=== PATIENT | male | born 1995 | race Caucasian/White ===

== ENCOUNTER 2020-08-15 16:05 | Outpatient (REF) | payer OTHER, SELFPAY | END 2020-08-15 16:06 | disposition home or self-care (01) | LOC: HO.LAB 16:05 | PROVIDERS: PCP Internal Medicine; Visit Provider Internal Medicine | DX: Z20.822 Contact with and (suspected) exposure to COVID-19 (principal) | CPT/HCPCS: 36415; C9803; U0003 ==

== ENCOUNTER 2020-12-31 18:22 | Emergency (ER) | payer OTHER, SELFPAY ==
[2020-12-31 19:31] VITALS: BP 135/69; PULSE 81; TEMP 36.5; O2SAT 100; BMI 29.2
[2020-12-31] MEDS: Tetracaine HCl/PF 0.5% Oph Sol 4 ML DROPS 1 DROP EYE-BOTH (21:39)
[2020-12-31] MEDS: Fluorescein Sodium STRIP 1 STRIP EYE-BOTH (21:40)
--- NOTE | 2020-12-31 21:58 | ED_ITS ---
HPI - Eye Problem General Chief complaint: Eye Problems Stated complaint: foreign body in eye Time Seen by Provider: 12/31/20 21:04 Source: patient Mode of arrival: ambulatory Limitations: no limitations History of Present Illness chief complaint: eye pain Onset (ago): day(s) (1) Onset description: sudden Duration: constant Location: left eye Eye Symptoms: pain and foreign body sensation Place: work Mechanism: direct trauma (Saw dust on) Severity: moderate Severity scale (1-10): 6 If Pain, Quality: sharp Associated symptoms: none Treatments Prior to Arrival: none Related Data Previous Rx's Medication Instructions Recorded levothyroxine 25 mcg tablet 25 mcg PO QAM #30 tab 05/16/20 sulfacetamide sodium [Bleph-10] 1 drp OPHTHALMIC (EYE) Q4H 7 Days 12/31/20 #5 ml Allergies Allergy/AdvReac Type Severity Reaction Status Date / Time amoxicillin [AMOXICILLIN] Allergy Mild RASH Verified 07/30/20 13:27 Review of Systems Review of Systems: Yes all other systems are reviewed and are negative [facility] Past Medical History [facility] Narrative: Past medical history: None, past surgical history: None. Social history: Patient denies tobacco, alcohol and drug use. Surgical History History of appendectomy Family History Family History Father Cirrhosis Hypertension Mother Asthma Brother In good health Sister In good health Social History Social History Advance Directives: No Advance Directives Information Provided: Yes Physical Exam Vital Signs: Vital Signs: Last Vital Signs Temp 97.7 F 12/31/20 19:31 Pulse 81 12/31/20 19:31 BP 135/69 12/31/20 19:31 Pulse Ox 100 12/31/20 19:31 Body Mass Index 29.2 Const: General: cooperative and healthy appearing Orientation/consc iousness: oriented to person Limitations: no limitations HENMT: Head: Yes normal to inspection, Yes No palpable skull fracture present, Yes normocephalic and Yes atraumatic Eyes: Alignment and Position: alignment normal and position normal Periorbital: periorbital findings normal Eyelids: Yes eyelids normal Sclerae: scleral abnormal (Left eye injected) Corneas: fluorescein used (Positive small, linear corneal abrasion at 9 o'clock (left eye)) Pupils: Equal, round and reactive pupils present EOM: EOMs intact bilaterally Direct Ophthalmoscopy: normal light reflex Neck: Neck: Yes normal visual inspection Resp: Effort & Inspection: normal respiratory effort Neuro: General: oriented to person Cranial nerves: Yes Equal, round and reactive pupils present Psych: Appearance: grossly normal Course Course Course Narrative: Patient is still examination and findings are consistent with a left eye corneal abrasion. No foreign bodies were seen in the eye. I did inverted eyelids I did not see any foreign body under the eyelid. Patient was treated with ibuprofen 600 mg orally and erythromycin ointment to the left eye. Patient was given a prescription for Bleph 10 1 drop every 4 hours while awake for 1 week. He is advised to follow-up with our on-call medical transcription in 1-2 days for re-evaluation. Was given printed and verbal instructions and discharged home. Discharge Plan Discharge Clinical Impression: Corneal abrasion Patient Disposition: Home, Self-Care Instructions: Corneal Abrasion (ED) Additional Instructions: You have an abrasion to the cornea her left eye. Use Bleph 10 1 dropped her left eye every 4 hours while you are awake. Take ibuprofen 200 mg pills, 3 pills every 6 hours as needed for pain. Take Tylenol (acetaminophen) 500 mg pills, 2 pills every 4 to 6 hours as needed for pain. Follow-up with our on-call medical transcription in 2 days. Please return to the emergency department if your symptoms get worse or if you develop any symptoms that are concerning to you. Prescriptions: New sulfacetamide sodium [Bleph-10] 10 % drops 1 drp ophthalmic (eye) Q4H 7 Days Qty: 5 RF: 0 No Action levothyroxine 25 mcg tablet 25 mcg PO QAM Qty: 30 RF: 0 Referrals: Naun Messer [Physician] - 2 days (Left eye corneal abrasion)
[2020-12-31] MEDS: Ibuprofen 600 MG TABLET PO (22:26)
[2020-12-31] MEDS: Erythromycin Base 0.5% Oph Oin 1 GM TUBE 1 CM EYE-LEFT (22:26)
== END 2020-12-31 22:32 | disposition home or self-care (01) ==
PROVIDERS: Emergency Provider Emergency Medicine Emergency Medical Services; PCP Internal Medicine
DX: S05.02XA Injury of conjunctiva and corneal abrasion without foreign body, left eye, initial encounter (principal); H57.12 Ocular pain, left eye; X58.XXXA Exposure to other specified factors, initial encounter; Y93.9 Activity, unspecified; Y92.9 Unspecified place or not applicable; Y99.9 Unspecified external cause status; Z79.899 Other long term (current) drug therapy
CPT/HCPCS: 99284

== ENCOUNTER 2023-07-20 13:28 | Emergency (ER) | payer OTHER, SELFPAY ==
[2023-07-20 14:05] VITALS: BP 137/71; PULSE 62; RESP 17; TEMP 36.5; O2SAT 99; BMI 31.2
[2023-07-20 14:45] LABS: MANUAL DIFF FLAG NO
[2023-07-20 14:48] LABS: Appearance Urine Cloudy; Color Urine RED; Glucose Urine UA Negative (Negative); Leukocyte Esterase Urine Trace (Negative); Nitrite Urine Positive (Negative); PH 5.5 (5.0-9.0); UMIC TRIGGER UACC YES; Urine Blood Large (3+) (Negative); Urine Ketones Negative (Negative); Urine Protein 100 (2+) mg/dL (Neg-Trace)
[2023-07-20 14:51] LABS: Basophils Absolute Auto 0.1 X10*3/uL (0.0-0.2); Basophils Percent Auto 0.8 % (0-2); Eosinophils Absolute Auto 0.4 X10*3/uL (0.0-0.4); Eosinophils Percent Auto 3.4 % (0-4); Hematocrit 45.7 % (42.0-52.0); Hemoglobin 15.5 g/dl (14.0-18.0); Imm Gran Abs Auto 0.06 X10*3/uL (0.00-0.03); Imm Gran Pct Auto 0.5 % (0.0-0.4); Lymphocytes Absolute Auto 3.6 X10*3/uL (1.2-4.9); Lymphocytes Percent Auto 31.3 % (20-40); Mean Corpuscular HGB Conc 33.9 g/dl (31.0-36.0); Mean Corpuscular Hemoglobin 29.2 pg (27.0-33.0); Mean Corpuscular Volume 86.2 fL (80.0-98.0); Mean Platelet Volume 10.5 fL (9.4-12.4); Monocytes Percent Auto 8.2 % (2-11); Neutrophils Absolute Auto 6.5 x10*3/uL (2.0-8.3); Neutrophils Percent Auto 55.8 % (45-73); Platelet Count 255 X10*3/uL (160-400); Red Cell Distribution Width 12.2 % (11.0-16.0); White Blood Count 11.6 X10*3/uL (4.8-10.8)
[2023-07-20 14:54] LABS: Bacteria Urine None Seen (None Seen); Hyaline Casts Urine 0-2 /LPF (0-2); RBC Urine >20 /HPF (0-2); UACC Culture Trigger YES; WBC Urine 21-50 /HPF (0-5)
[2023-07-20 15:04] LABS: Anion Gap 12 (12-20); Blood Urea Nitrogen 15 mg/dL (9-16); Calcium 9.4 mg/dL (8.4-10.2); Carbon Dioxide 24 mmol/L (22-29); Chloride 106 mmol/L (96-108); Creatinine Clr Calc Pharmacy 161.6; Estimated Glomerular Filt Rate > 60; Glucose Random 105 mg/dL (60-115); Potassium 4.2 mmol/L (3.3-5.1); Sodium 138 mmol/L (135-145)
[2023-07-20 20:28] VITALS: BP 138/47; PULSE 68; RESP 14; TEMP 36.6; O2SAT 99
--- NOTE | 2023-07-20 22:12 | ED.MALEGU ---
HPI - Male Genitourinary General Chief complaint: Urogenital-Male Stated complaint: blood in urine Time Seen by Provider: 07/20/23 22:06 Source: patient Mode of arrival: ambulatory Limitations: no limitations History of Present Illness HPI Narrative: 27 yo male no PMH states he is not sexually active for years here with c/o urinating x 2 and it was dark and he saw blood today. He has no hx of stones, did have diarrhea over the weekend but that resolved. He works long hours at [employer] and notes he has a bad habit of holding it frequently. He has no back pain, fevers, n/v. Complaint: other (hematuria) Onset (ago): day(s) (1) Duration: intermittent Location: penis Severity: mild Relieving factors: none Exacerbating factors: urination Associated symptoms: Reports denies other symptoms Related Data Previous Rx's Medication Instructions Recorded levothyroxine 25 mcg tablet 25 mcg PO QAM #30 tabs 05/16/20 sulfacetamide sodium 10 % eye 1 drp ophthalmic (eye) Q4H 7 days 12/31/20 drops (Bleph-10) #5 mL levofloxacin 750 mg tablet 750 mg PO DAILY #6 tabs 07/20/23 Allergies Allergy/AdvReac Type Severity Reaction Status Date / Time amoxicillin [AMOXICILLIN] Allergy Mild RASH Verified 07/30/20 13:27 Review of Systems Review of Systems: Constitutional : No Fever, No Chills ENT/Mouth : No sore throat Eyes: No Eye Pain, No Swelling, No Redness Cardiovascular : No Chest Pain, No SOB Respiratory : No Cough, No Sputum, No Wheezing Gastrointestinal : no Nausea, no Vomiting, No Diarrhea, noabdominal pain Genitourinary : noDysuria, no urinary frequency, positive Hematuria, no Flank Pain, no hesitancy Musculoskeletal : No joint pain, No Myalgias Skin : No Skin Lesions, No rash Neuro : No Weakness, No Numbness, No Headache Psych : No Anxiety/Panic, No Depression All other systems reviewed and are negative [facility] Past Medical History Surgical History History of appendectomy Family History Family History Father Cirrhosis Hypertension Mother Asthma Brother In good health Sister In good health Social History Social History Advance Directives: No Advance Directives Information Provided: No Physical Exam Vital Signs: Vital Signs: Last Vital Signs Temp 97.8 F 07/20/23 20:28 Pulse 68 07/20/23 20:28 Resp 14 07/20/23 20:28 BP 138/47 L 07/20/23 20:28 Pulse Ox 99 07/20/23 20:28 O2 Del Method Room Air 07/20/23 20:28 BMI result Body Mass Index 31.2 Appearance: Alert. Oriented X3. No acute distress. Eyes: Pupils equal, round and reactive to light. ENT: Pharynx normal. Neck: Normal inspection. Neck supple. CVS: Normal heart rate and rhythm. Pulses normal. Respiratory: No respiratory distress. Breath sounds normal. Abdomen: Soft and nontender. Back: no CVA ttp Skin: Skin warm and dry. Normal skin color. Normal skin turgor. Extremities: No lower extremity edema. No calf ttp Neuro: Oriented X 3. No motor deficit. No sensory deficit. Medical Decision Making Medical Decision Making [facility] Narrative: 27 yo male with no sig PMH here with c/o seeing blood in urine x 2 but without hx of stones, no back pain, fevers, n/v. He has never had a UTI before, he has not been sexually active in many years. He denies rectal pain or pelvic pain to suggest prostatitis. At this time UA concerning for UTI will start on levofloxacin and DC home with precautions. Differential Diagnosis Differential Diagnoses: The differential diagnosis associated with the presentation includes UTI, renal colic though he has no pain so this seems unlikely, he denies any sexual contact in years STI unlikely, he has no abdominal pain or rectal pain to suggest prostatitis Lab Data [facility] Lab Attestation statement: I reviewed the patient's lab results. 07/20/23 14:40 07/20/23 14:39 Labs: Lab Results 07/20/23 07/20/23 Range/Units 14:39 14:40 WBC 11.6 H (4.8-10.8) X10*3/uL RBC 5.30 (4.60-5.80) X10*6/uL Hgb 15.5 (14.0-18.0) g/dl Hct 45.7 (42.0-52.0) % MCV 86.2 (80.0-98.0) fL MCH 29.2 (27.0-33.0) pg MCHC 33.9 (31.0-36.0) g/dl RDW 12.2 (11.0-16.0) % Plt Count 255 (160-400) X10*3/uL MPV 10.5 (9.4-12.4) fL Immature Gran % (Auto) 0.5 H (0.0-0.4) % Neut % (Auto) 55.8 (45-73) % Lymph % (Auto) 31.3 (20-40) % [place] % (Auto) 8.2 (2-11) % Eos % (Auto) 3.4 (0-4) % Baso % (Auto) 0.8 (0-2) % Lymph # (Auto) 3.6 (1.2-4.9) X10*3/uL [place] # (Auto) 1.0 (0.1-1.2) X10*3/uL Eos # (Auto) 0.4 (0.0-0.4) X10*3/uL Baso # (Auto) 0.1 (0.0-0.2) X10*3/uL Abs Immat Gran (auto) 0.06 H (0.00-0.03) X10*3/uL Absolute Neuts (auto) 6.5 (2.0-8.3) x10*3/uL Absolute Nucleated RBC 0.000 (0.0-0.012) X10*3/uL Nucleated RBC % (auto) 0.0 (0.0-0.2) /100WBC Sodium 138 (135-145) mmol/L Potassium 4.2 (3.3-5.1) mmol/L Chloride 106 (96-108) mmol/L Carbon Dioxide 24 (22-29) mmol/L Anion Gap 12 (12-20) BUN 15 (9-16) mg/dL Creatinine 0.84 (0.5-1.4) mg/dL Estim Creat Clear Calc 161.6 Estimated GFR > 60 Random Glucose 105 (60-115) mg/dL Calcium 9.4 (8.4-10.2) mg/dL Urine Color RED Urine Appearance Cloudy Urine pH 5.5 (5.0-9.0) Ur Specific [place] 1.020 (1.005-1.025) Urine Protein 100 (2+) H (Neg-Trace) mg/dL Urine Glucose (UA) Negative (Negative) mg/dL Urine Ketones Negative (Negative) mg/dL Urine Blood Large (3+) H (Negative) Urine Nitrite Positive H (Negative) Ur Leukocyte Esterase Trace H (Negative) Urine RBC >20 H (0-2) /HPF Urine WBC 21-50 H (0-5) /HPF Ur Squamous Epith Cells 3-5 (0-2) /HPF Urine Bacteria None Seen (None Seen) Hyaline Casts 0-2 (0-2) /LPF Prescription Management I considered prescription management with: Antibiotic Discharge Plan Discharge Clinical Impression: Urinary tract infection Qualifiers: Urinary tract infection type: acute cystitis Hematuria presence: with hematuria Qualified Code(s): N30.01 - Acute cystitis with hematuria Patient Disposition: Home, Self-Care Instructions: Urinary Tract Infection in Men (ED) Additional Instructions: return for fevers, vomiting, worsening symptoms, back pain. remember to take it easy on this antibiotic it can affect your tendons. Prescriptions: New levofloxacin 750 mg tablet 750 mg PO DAILY Qty: 6 0RF Rx Instructions: start on 07/21 No Action levothyroxine 25 mcg tablet 25 mcg PO QAM Qty: 30 0RF sulfacetamide sodium [Bleph-10] 10 % drops 1 drp ophthalmic (eye) Q4H 7 Days Qty: 5 0RF Rx Instructions: Left eye Stand Alone Forms: Work/School Release
[2023-07-20] MEDS: levoFLOXacin 750 MG TABLET PO (22:31)
[2023-07-20 22:46] VITALS: BP 127/52; PULSE 71; RESP 18; TEMP 36.2; O2SAT 97
== END 2023-07-20 22:49 | disposition home or self-care (01) ==
PROVIDERS: Emergency Provider Emergency Medicine
DX: N30.01 Acute cystitis with hematuria (principal); Z79.899 Other long term (current) drug therapy
CPT/HCPCS: 36415; 80048; 81001; 85025; 87086; 99283; 99284

== ENCOUNTER 2023-08-25 08:39 | Emergency (ER) | payer OTHER, SELFPAY ==
[2023-08-25 08:43] VITALS: BP 118/52; PULSE 122; O2SAT 95
[2023-08-25 08:44] VITALS: BP 115/52; PULSE 123; RESP 20; TEMP 38.4; O2SAT 98; BMI 67.4
[2023-08-25] MEDS: 0.9 % Sodium Chloride 500 ML 999 ML IV (09:29)
[2023-08-25 09:33] LABS: MANUAL DIFF FLAG NO
[2023-08-25 09:35] LABS: Basophils Percent Auto 0.3 % (0-2); Eosinophils Absolute Auto 0.1 X10*3/uL (0.0-0.4); Eosinophils Percent Auto 1.2 % (0-4); Hematocrit 43.2 % (42.0-52.0); Hemoglobin 14.9 g/dl (14.0-18.0); Imm Gran Abs Auto 0.03 X10*3/uL (0.00-0.03); Imm Gran Pct Auto 0.3 % (0.0-0.4); Lymphocytes Absolute Auto 0.7 X10*3/uL (1.2-4.9); Lymphocytes Percent Auto 7.3 % (20-40); Mean Corpuscular HGB Conc 34.5 g/dl (31.0-36.0); Mean Corpuscular Hemoglobin 29.5 pg (27.0-33.0); Mean Corpuscular Volume 85.5 fL (80.0-98.0); Mean Platelet Volume 10.3 fL (9.4-12.4); Monocytes Absolute Auto 0.9 X10*3/uL (0.1-1.2); Monocytes Percent Auto 8.8 % (2-11); Neutrophils Absolute Auto 8.1 x10*3/uL (2.0-8.3); Neutrophils Percent Auto 82.1 % (45-73); Platelet Count 219 X10*3/uL (160-400); Red Blood Count 5.05 X10*6/uL (4.60-5.80); Red Cell Distribution Width 12.5 % (11.0-16.0); White Blood Count 9.9 X10*3/uL (4.8-10.8)
[2023-08-25] MEDS: Ibuprofen 800 MG TABLET PO (09:39)
--- NOTE | 2023-08-25 09:40 | PC.NURSE ---
patient a&ox3, c/o generalized body aches, pt febrile which he was medicated for, iv inserted, labs drawn, IVF started per order, call viveros within reach, will continue to monitor.
[2023-08-25 09:49] LABS: Anion Gap 12 (12-20); Blood Urea Nitrogen 10 mg/dL (9-16); Calcium 9.7 mg/dL (8.4-10.2); Carbon Dioxide 26 mmol/L (22-29); Chloride 103 mmol/L (96-108); Creatinine Clr Calc Pharmacy 212.4; Estimated Glomerular Filt Rate > 60; Glucose Random 85 mg/dL (60-115); Potassium 4.3 mmol/L (3.3-5.1); Sodium 137 mmol/L (135-145)
[2023-08-25 11:17] VITALS: BP 114/51; PULSE 92; RESP 18; TEMP 36.6; O2SAT 96
--- NOTE | 2023-08-25 11:18 | PC.NURSE ---
patient a&ox3, vss, pt states he feels better just has a sore throat, call viveros within reach, will continue to monitor
--- NOTE | 2023-08-25 12:22 | ED.GENADULT ---
HPI - General Adult General Chief complaint: Upper Respiratory Symptoms Stated complaint: +COVID,WEAK,SOB 95% RA PER EMS Time Seen by Provider: 08/25/23 08:49 Source: patient and EMS Mode of arrival: EMS Limitations: no limitations History of Present Illness HPI narrative: Patient tested positive for Covid presents with weakness and fever Onset (ago): day(s) Severity: moderate Related Data Previous Rx's Medication Instructions Recorded levothyroxine 25 mcg tablet 25 mcg PO QAM #30 tabs 05/16/20 sulfacetamide sodium 10 % eye 1 drp ophthalmic (eye) Q4H 7 days 12/31/20 drops (Bleph-10) #5 mL levofloxacin 750 mg tablet 750 mg PO DAILY #6 tabs 07/20/23 Allergies Allergy/AdvReac Type Severity Reaction Status Date / Time amoxicillin [AMOXICILLIN] Allergy Mild RASH Verified 08/25/23 08:58 Review of Systems Review of Systems: Yes all other systems are reviewed and are negative Neurologic: Denies Sensory deficit (Neuro) [facility] Past Medical History Surgical History History of appendectomy Family History Family History Father Cirrhosis Hypertension Mother Asthma Brother In good health Sister In good health Social History Social History Alcohol intake: current Alcohol intake frequency: a few times a month Smoked in Last 30 Days: Yes Use of substances other than those prescribed or required for medical reasons: No Substance Use Type: Marijuana Advance Directives: No Physical Exam ED Vital Signs: Vital Signs - 24 hr 08/25/23 08:44 08/25/23 11:17 Temperature 101.1 F H 97.9 F Pulse Rate 123 H 92 Respiratory Rate 20 18 Blood Pressure 115/52 L 114/51 L Pulse Oximetry 98 96 Oxygen Delivery Method Room Air Room Air BMI result Body Mass Index 67.4 Const General: healthy appearing Nutritional Appearance: obese Orientation/consciousness: oriented to person and patient oriented x3 Limitations: no limitations HENMT Head: Yes normal to inspection Ears: external ears normal General nose exam: Normal external nose present Mouth: Normal oral and palatal mucosa present and oropharynx normal Throat: Yes posterior oropharynx normal Eyes General: appearance normal, both eyes and all related structures Neck Neck: Yes normal visual inspection Chest Chest palpation & inspection: normal inspection of the chest Resp Auscultation: clear to auscultation bilaterally Cardio Jugular venous distension: no JVD Rate: regular rate and tachycardic Rhythm: regular rhythm GI Inspection: Yes normal to inspection Palpation (GI): Soft to palpation, nontender and No hepatosplenomegaly present Auscultation: normal bowel sounds General: Yes no CVA tenderness Back/Spine/Pelvis Back: no CVA tenderness Skin Other: diaphoresis General skin exam: no rashes or lesions noted Neuro General: oriented to person and patient oriented x3 Cranial nerves: Yes CN's II-XII intact bilaterally Motor exam (neuro): 5/5 motor strength present throughout Sensory Exam: No Sensory deficit (Neuro) Extrem General: Yes normal to inspection Psych Appearance: grossly normal Course Reevaluation(s) Reevaluation #1: Patient given IV hydration and tylenol, vitals normal Time: 12:25 Medications Administered Discontinued Medications Generic Name Dose Route Start Last Admin Trade Name Freq PRN Reason Stop Dose Admin Sodium Chloride 500 mls @ 999 mls/hr 08/25/23 09:00 08/25/23 10:21 Ns IV 08/25/23 09:30 Infused .Q31M MICHAEL Infusion Ibuprofen 800 mg 08/25/23 08:56 08/25/23 09:39 Ibuprofen 800 Mg Tablet PO 08/25/23 08:57 800 mg ONCE ONE Administration Medical Decision Making Differential Diagnosis Differential Diagnoses: The differential diagnosis associated with the presentation includes (covid, dehydration, fever, weakness) Admission/Observation Consideration of admission/observation: Escalation of care including admission/observation considered (upon arrival patient considered for admission) Lab Data 08/25/23 09:27 08/25/23 09:27 Labs: Lab Results 08/25/23 Range/Units 09:27 WBC 9.9 (4.8-10.8) X10*3/uL RBC 5.05 (4.60-5.80) X10*6/uL Hgb 14.9 (14.0-18.0) g/dl Hct 43.2 (42.0-52.0) % MCV 85.5 (80.0-98.0) fL MCH 29.5 (27.0-33.0) pg MCHC 34.5 (31.0-36.0) g/dl RDW 12.5 (11.0-16.0) % Plt Count 219 (160-400) X10*3/uL MPV 10.3 (9.4-12.4) fL Immature Gran % (Auto) 0.3 (0.0-0.4) % Neut % (Auto) 82.1 H (45-73) % Lymph % (Auto) 7.3 L (20-40) % [place] % (Auto) 8.8 (2-11) % Eos % (Auto) 1.2 (0-4) % Baso % (Auto) 0.3 (0-2) % Lymph # (Auto) 0.7 L (1.2-4.9) X10*3/uL [place] # (Auto) 0.9 (0.1-1.2) X10*3/uL Eos # (Auto) 0.1 (0.0-0.4) X10*3/uL Baso # (Auto) 0.0 (0.0-0.2) X10*3/uL Abs Immat Gran (auto) 0.03 (0.00-0.03) X10*3/uL Absolute Neuts (auto) 8.1 (2.0-8.3) x10*3/uL Absolute Nucleated RBC 0.000 (0.0-0.012) X10*3/uL Nucleated RBC % (auto) 0.0 (0.0-0.2) /100WBC Sodium 137 (135-145) mmol/L Potassium 4.3 (3.3-5.1) mmol/L Chloride 103 (96-108) mmol/L Carbon Dioxide 26 (22-29) mmol/L Anion Gap 12 (12-20) BUN 10 (9-16) mg/dL Creatinine 0.99 (0.5-1.4) mg/dL Estim Creat Clear Calc 212.4 Estimated GFR > 60 Random Glucose 85 (60-115) mg/dL Calcium 9.7 (8.4-10.2) mg/dL Independent Historian Clinical information obtained from an independent historian. History obtained from or confirmed by: EMS Tests considered The following testing was considered but not selected: CXR considered but patient not hypoxic, lungs clear Prescription Management I considered prescription management with: Antiviral (no reason for antiviral medication at this time) Discharge Plan Discharge Clinical Impression: COVID-19 Patient Disposition: Home, Self-Care Instructions: COVID-19 (Coronavirus Disease 2019) (ED) Additional Instructions: tylenol alternating with motrin every 3 hours for fever Prescriptions: No Action levothyroxine 25 mcg tablet 25 mcg PO QAM Qty: 30 0RF sulfacetamide sodium [Bleph-10] 10 % drops 1 drp ophthalmic (eye) Q4H 7 Days Qty: 5 0RF Rx Instructions: Left eye levofloxacin 750 mg tablet 750 mg PO DAILY Qty: 6 0RF Rx Instructions: start on 07/21 Referrals: Physician,None [Primary Care Provider] - 1 week Stand Alone Forms: Work/School Release
== END 2023-08-25 12:47 | disposition home or self-care (01) ==
PROVIDERS: Emergency Provider Emergency Medicine
DX: U07.1 COVID-19 (principal); R53.1 Weakness; R06.02 Shortness of breath; R50.9 Fever, unspecified; Z79.899 Other long term (current) drug therapy
CPT/HCPCS: 36415; 80048; 85025; 96360; 99284

== ENCOUNTER 2023-09-11 11:57 | Emergency (ER) | payer OTHER, SELFPAY ==
[2023-09-11 11:59] VITALS: BP 165/116; PULSE 117; RESP 18; TEMP 36; O2SAT 95; BMI 27.5
--- NOTE | 2023-09-11 12:01 | ED.SKABFB ---
HPI - Skin/Abscess/Foreign Bdy General Chief complaint: Skin/Abscess/Foreign Body Stated complaint: abscess under R armpit ? Time Seen by Provider: 09/11/23 12:21 Source: patient Mode of arrival: ambulatory Limitations: no limitations History of Present Illness HPI narrative: 27 yo male with a pmhx of pilonidal abscess presents to the ED c/o abscess causing pain under the R axilla that started 2 days ago. He states that it is painful to move the arm and lift the arm up and is experiencing some drainage of the abscess. He denies any fever or chills. MD complaint: abscess/boil Onset (ago): day(s) Location: RUE Severity: mild Severity scale (1-10): 3 Quality: constant Pain Consistency: constant Relieving factors: none Exacerbating factors: movement Context: none Associated symptoms: denies other symptoms Treatments prior to arrival: none Related Data Previous Rx's Medication Instructions Recorded levothyroxine 25 mcg tablet 25 mcg PO QAM #30 tabs 05/16/20 sulfacetamide sodium 10 % eye 1 drp ophthalmic (eye) Q4H 7 days 12/31/20 drops (Bleph-10) #5 mL levofloxacin 750 mg tablet 750 mg PO DAILY #6 tabs 07/20/23 cefuroxime axetil 250 mg tablet 250 mg PO BID 7 days #14 tabs 09/11/23 fluconazole 150 mg tablet 150 mg PO Q3D 2 doses #2 tabs 09/11/23 Allergies Allergy/AdvReac Type Severity Reaction Status Date / Time amoxicillin [AMOXICILLIN] Allergy Mild RASH Verified 09/11/23 12:04 Review of Systems Constitutional: Constitutional: Reports no additional constitutional complaints, Denies chills, Denies fever(s) and Denies night sweats Eyes: Eyes: Reports no additional eye complaints, Denies blurry vision, Denies change in vision, Denies diplopia, Denies eye discharge, Denies loss of vision and Denies eye pain ENT: Denies dizziness Cardiovascular: Cardiovascular: Reports no additional cardiovascular complaints, Denies chest pain, Denies lightheadedness, Denies Loss of Consciousness and Denies dyspnea Respiratory: Respiratory: Reports no additional respiratory complaints and Denies dyspnea Gastrointestinal: Gastrointestinal: Reports no additional gastrointestinal complaints, Denies abdominal pain, Denies melena, Denies hematochezia, Denies change in bowel habits and Denies change in stool character Genitourinary: Genitourinary: Reports no additional male genitourinary complaints, Denies hematuria, Denies oliguria, Denies difficulty urinating, Denies dysuria, Denies urinary frequency, Denies urinary hesitancy, Denies urinary incontinence and Denies urinary urgency Musculoskeletal: Musculoskeletal: Reports no additional musculoskeletal complaints, Denies numbness and Denies tingling Integumentary/Breasts: Comments: abscess in right axilla Neurologic: Denies dizziness, Denies loss of vision, Denies numbness and Denies tingling Psychiatric: Psychiatric: Reports no additional psychiatric complaints Endocrine: Endocrine: Reports no additional endocrine complaints Hematologic/Lymphatic: Hematologic/Lymphatic: Reports no additional hematologic/lymphatic complaints Allergic/Immunologic: Allergic/Immunologic: Reports no additional allergic/immunologic complaints PMF Past Medical History Attestation statement: The following information was validated with the patient. Source: old records reviewed and nursing notes reviewed Surgical History History of appendectomy Family History Family History Father Cirrhosis Hypertension Mother Asthma Brother In good health Sister In good health Social History Social History Alcohol intake: current Alcohol intake frequency: a few times a month Substance Use Type: Marijuana Advance Directives: No Advance Directives Information Provided: No Physical Exam Vital Signs: Vital Signs: Last Vital Signs Temp 96.8 F 09/11/23 11:59 Pulse 117 H 09/11/23 11:59 Resp 18 09/11/23 11:59 BP 165/116 H 09/11/23 11:59 Pulse Ox 95 09/11/23 11:59 O2 Del Method Room Air 09/11/23 11:59 BMI result Body Mass Index 27.5 Const: General: cooperative, no acute distress, alert and awake Nutritional Appearance: well nourished Orientation/consciousness: patient oriented x3 Limitations: no limitations HEENT: Head: Yes normal to inspection and Yes atraumatic Ears: hearing grossly normal bilaterally and external ears normal General nose exam: Normal external nose present, no nasal discharge noted and no epistaxis Face and sinus: Yes normal facial exam, No abrasion and No laceration Mouth: Normal oral and palatal mucosa present, no drooling and no muffled voice Eyes: General: appearance normal, both eyes and all related structures Periorbital: periorbital findings normal Eyelids: Yes eyelids normal Conjunctivae: conjunctivae normal Pupils: Equal, round and reactive pupils present EOM: EOMs intact bilaterally Neck: Neck: Yes normal visual inspection, Yes full ROM and Yes no lymphadenopathy Chest: Chest palpation & inspection: normal inspection of the chest Resp: Effort & Inspection: normal respiratory effort and able to speak in complete sentences GI: Inspection: Yes normal to inspection Skin: General skin exam: erythema Lesions: lesion noted Trauma: no lacerations or abrasions Wounds: no wounds Neuro: General: patient oriented x3 and moves all extremities Cranial nerves: Yes Equal, round and reactive pupils present Cognition (Neuro): normal cognition Motor exam (neuro): 5/5 motor strength present throughout Sensory Exam: Normal double simultaneous stimulation for sensation Coordination: [id number] test normal Extrem: Other: erythematous and warm area under the right axilla with 2 open areas actively draining, no fluctuance General: Yes full ROM and Yes capillary refill normal Psych: Appearance: grossly normal Mental Status: mental status grossly normal Affect: normal affect Attitude: cooperative Thought process: Normal thought process present Thought content: Normal thought content present Insight: Good insight present (Psych) Course Course Course Narrative: This is an RME: Additional HPI, ROS, PE not included below will be deferred to primary provider. Patient is a 27-year-old male who Reports an abscess to the right axilla for the past few weeks, severe pain as of last night with increasing size/redness while at work. Has been experiencing some drainage. Denies fevers or chills. Reports a history of prior abscesses requiring incision and drainage. Medications Administered Discontinued Medications Generic Name Dose Route Start Last Admin Trade Name Freq PRN Reason Stop Dose Admin Cefuroxime Axetil 250 mg 09/11/23 12:31 09/11/23 12:43 Cefuroxime Axetil 250 Mg Tablet PO 09/11/23 12:32 250 mg ONCE ONE Administration Fluconazole 150 mg 09/11/23 12:31 09/11/23 12:43 Fluconazole 150 Mg Tablet PO 09/11/23 12:32 150 mg ONCE ONE Administration Medical Decision Making Medical Decision Making MDM Narrative: Patient is a 27 year old assigned male at with a history of pilonidal abscess presenting to the emergency department today with an abscess to his right axilla. Patient's physical exam was as noted in the physical exam portion of this note. Patient appears to have had a previous abscess in the right axilla that has already opened in 2 places and is adequately draining. Given the location of the area and its physical appearance, will cover for both cellulitis and yeast. I explained my physical exam findings to the patient. I answered all questions asked by the patient. I stressed the importance of the patient taking his medication as prescribed. I stressed the importance of the patient following up with his primary care provider and a general surgeon. I stressed the importance of the patient returning to the emergency department immediately if his symptoms were to worsen or if he were to develop any dizziness, shortness of breath, difficulty breathing, chest pain, blurry vision, loss of vision, nausea, vomiting, abdominal pain, fever, chills, back pain, or any other complaints. Patient verbalized agreement and understanding with this treatment plan and discharge. Differential Diagnosis Differential Diagnoses: The differential diagnosis associated with the presentation includes abscess of R axilla fistula cellulitis yeast infection of the skin Admission/Observation Consideration of admission/observation: Escalation of care including admission/observation considered Patient would have been admitted to the hospital had his work up had any findings where hospital admission was appropriate and his clinical presentation warranted hospital admission. Prescription Management I considered prescription management with: Antibiotic (patient prescribed an antibiotic for cellulitis of the R axilla) and Other (patient prescribed an anti-fungal for possible yeast infection of R axilla) Discharge Plan Discharge Clinical Impression: Cellulitis, Abscess, Skin yeast infection Patient Disposition: Home, Self-Care Instructions: Cellulitis (DC), Skin Yeast Infection (ED), Abscess Follow-up (ED) Additional Instructions: Follow up with your primary care provider and a general surgeon. Keep applying warm compresses to the area. Return to the emergency department immediately if your symptoms worsen or if you develop any dizziness, shortness of breath, difficulty breathing, chest pain, blurry vision, loss of vision, nausea, vomiting, abdominal pain, fever, chills, back pain, or any other complaints. Prescriptions: New cefuroxime axetil 250 mg tablet 250 mg PO BID 7 Days Qty: 14 0RF fluconazole 150 mg tablet 150 mg PO Q3D Qty: 2 0RF No Action levothyroxine 25 mcg tablet 25 mcg PO QAM Qty: 30 0RF sulfacetamide sodium [Bleph-10] 10 % drops 1 drp ophthalmic (eye) Q4H 7 Days Qty: 5 0RF Rx Instructions: Left eye levofloxacin 750 mg tablet 750 mg PO DAILY Qty: 6 0RF Rx Instructions: start on 07/21 [place] [facility] [place] Group] (Call to establish and follow up with a general surgeon.) [facility] [place] Family Medicine [Provider Group] (Call to establish and follow up with a primary care provider. If you already have a primary care provider, please follow up with them.) [facility] [place] Primary Care, Mark [Provider Group] (Call to establish and follow up with a primary care provider. If you already have a primary care provider, please follow up with them.) [facility] [place] Primary Care,Paresh [Provider Group] (Call to establish and follow up with a primary care provider. If you already have a primary care provider, please follow up with them.) Stand Alone Forms: Work/School Release Interventions: ED Discharge Assessment Last Done: 09/11/23 12:52 Discharge Date/Time: 09/11/23 12:52 Print Language: Thai
[2023-09-11] MEDS: cefuroxime axetiL 250 MG TABLET PO (12:43)
[2023-09-11] MEDS: Fluconazole 150 MG TABLET PO (12:43)
== END 2023-09-11 12:52 | disposition home or self-care (01) ==
PROVIDERS: Emergency Provider Emergency Medicine
DX: L03.111 Cellulitis of right axilla (principal); L02.411 Cutaneous abscess of right axilla; B37.2 Candidiasis of skin and nail
CPT/HCPCS: 99282; 99283

== ENCOUNTER 2023-09-30 13:29 | Outpatient (AMB) | payer OTHER, SELFPAY ==
--- NOTE | 2023-09-30 13:48 | MHC.NURWM ---
Intake Intake Visit Reasons: abscess under armpit Allergies amoxicillin [AMOXICILLIN] Allergy (Mild, Verified 09/11/23 12:04) RASH Coding
--- NOTE | 2023-09-30 13:55 | MHC.OFFVIS ---
Intake Vital Signs 09/30/23 13:57 Height 5 ft 5 in Weight 128 lb 6 oz BMI 21.4 BP 143/62 H Blood Pressure Location Lt brachial Position Sitting Pulse 76 Intake Visit Reasons: abscess under armpit Intake Note: Patient is seen in office for ER follow up visit, following abscess under the right arm. Pt c/o: was given antibiotics at ED, discharge since, currently has no pain, redness, or swelling, continued discharge ER:09/11/23 [employer] Required: No Accompanied by: Self / Same As Patient Allergies amoxicillin [AMOXICILLIN] Allergy (Mild, Verified 09/30/23 13:54) RASH Medication List - Last Reconciled 09/30/23 by Roverto Ha MD nystatin 1 appl topical BID HPI HPI Comments History of Present Illness Details 27-year-old male patient with a prior history of persistent pilonidal cyst infections now presenting with a recent abscess of the right axilla. He denies a previous history of skin infectious in this location. He was evaluated in the emergency department and prescribed a combination of antibiotics and antifungal treatment. He was found to have a wide area of skin irritation suggestive of a fungal skin infection. He returns today for wound check. Apparently soon after being seen in the emergency department the abscess broke open and a large amount of pus drained. He feels much improved today with decreased pain and swelling. [facility] Surgical History History of appendectomy Family History Father Cirrhosis Hypertension Mother Asthma Brother In good health Sister In good health Social History Alcohol intake: current Alcohol intake frequency: a few times a month Substance Use Type: Marijuana Review of Systems Const All systems reviewed & are unremarkable except as noted in HPI and below Physical Exam Vital Signs: Last Vital Signs Pulse 76 09/30/23 13:57 BP 143/62 H 09/30/23 13:57 BMI result Body Mass Index 21.4 Const General: cooperative and no acute distress Nutritional Appearance: well nourished Orientation/consciousness: patient oriented x3 Limitations: no limitations HEENT Head: Yes normocephalic and Yes atraumatic Ears: hearing grossly normal bilaterally Chest Other: Right axilla with evidence hidradenitis with a draining sinus noted in the crease of the axilla. Surrounding area of skin is red with moisture suggestive of a fungal skin infection. No undrained abscess is identified. There is evidence of chronic hidradenitis in the surrounding skin. Resp Effort & Inspection: normal respiratory effort, no audible wheezes, no cough and no respiratory distress Cardio Jugular venous distension: no JVD GI Inspection: Yes normal to inspection Skin Other: Warm, dry, no rash Neuro General: patient oriented x3 Extrem General: Yes no clubbing, cyanosis or edema Assessment & Plan Assessment & Plan (1) Fungal skin infection: Code(s): B36.9 - Superficial mycosis, unspecified (2) Hidradenitis: Code(s): L73.2 - Hidradenitis suppurativa Plan Patient returns for evaluation of right axillary hidradenitis. The previous abscess is now well drained with no undrained collection. Recommended applying nystatin cream to the surrounding skin twice daily. He should follow up as needed. Medications: New nystatin Applied to right axillary skin 2 times daily. 1 appl topical BID 15 grams 2RF B36.9 - Superficial mycosis, unspecified Coding Level of Care Code New Pt Level 4 (25573) Diagnoses Fungal skin infection B36.9 Hidradenitis L73.2
[2023-09-30 13:57] VITALS: BP 143/62; PULSE 76; BMI 21.4
== END 2023-09-30 14:04 | disposition home or self-care (01) ==
PROVIDERS: Visit Provider Surgery
DX: L73.2 Hidradenitis suppurativa (principal); B36.9 Superficial mycosis, unspecified
CPT/HCPCS: 99204

== ENCOUNTER → 2023-09-30 13:29 | Outpatient (BNVA) | payer OTHER, SELFPAY | PROVIDERS: Visit Provider Surgery | DX: L73.2 Hidradenitis suppurativa (principal); B36.9 Superficial mycosis, unspecified | CPT/HCPCS: 99202 ==